=== PATIENT | female | born 1990 | race Caucasian/White ===

== ENCOUNTER 2022-05-19 08:27 | Day surgery (SDC) | payer BC ==
[2022-05-14 11:34] LABS: BHCG - Serum Negative (NEGATIVE); Pregs Control Background? CLEAR/WHITE (CLR/WHITE); Pregs Control Bar Appear? YES (CONTROL BAR)
[2022-05-14 11:45] LABS: Hemoglobin 13.5 g/dL (12.0-15.5); Mean Corpuscular HGB CONC 33.9 g/dL (32.0-36.0); Mean Corpuscular Hemoglobin 31.1 pg (27.0-33.0); Mean Corpuscular Volume 91.7 fl (81.6-98.3); Mean Platelet Volume 9.9 fl (7.4-10.4); Platelet Count 203 10x3/uL (150-450); RBC Distribution Width 12.4 % (11.5-14.5); Red Blood Cell (RBC) Count 4.34 10x6/uL (3.90-5.03); White Blood Cell (WBC) Count 4.9 10x3/uL (3.5-10.5)
[2022-05-18 13:21] VITALS: BMI 26.2
[2022-05-19] MEDS ORDERED: Famotidine/PF 20 mg/2ml Vial ONE (08:35)
[2022-05-19] MEDS ORDERED: Gabapentin 300 MG CAP ONE (08:35)
[2022-05-19] MEDS ORDERED: CeleCOXIB 100 MG CAP ONE (08:36)
[2022-05-19] MEDS ORDERED: Lidocaine 1% MPF 2 ML VIAL ONE (08:58)
[2022-05-19] MEDS ORDERED: Midazolam HCl 2 mg/2 ml Vial ONE ×2 (09:34→09:36)
[2022-05-19] MEDS ORDERED: EPINEPHrine 1 MG/ML AMP ONE (09:35)
[2022-05-19] MEDS ORDERED: Bupivacaine PF 0.5% 30 ML VIAL ONE (09:35)
[2022-05-19] MEDS ORDERED: Lidocaine 1% PF 5 ML VIAL ONE (09:36)
[2022-05-19] MEDS ORDERED: Fentanyl 100 MCG/2 ML VIAL ONE ×3 (09:36→12:11)
[2022-05-19] MEDS ORDERED: PROPOFOL 20 ML ONE ×2 (09:36→10:23)
[2022-05-19] MEDS ORDERED: Ondansetron PF 4 MG/2 ML Vial ONE (09:36)
[2022-05-19] MEDS ORDERED: Ketorolac Tromethamine 30 MG/ML VIAL ONE (09:36)
[2022-05-19] MEDS ORDERED: Dexamethasone 4 mg/ml Vial ONE (09:36)
[2022-05-19] MEDS ORDERED: Rocuronium Bromide 10 MG/ML (10ML VIAL) ONE (09:36)
[2022-05-19] MEDS ORDERED: CEFAZOLIN 2 GM VIAL ONE (09:45)
[2022-05-19] MEDS ORDERED: Meperidine HCl/PF 25 MG/ML VIAL ONE (12:13)
== END 2022-05-19 13:55 | disposition home or self-care (01) ==
LOC: CSHSDC 08:27
PROVIDERS: ATTEND Obstetrics & Gynecology
PROC: 0UT94ZZ Resection of Uterus, Percutaneous Endoscopic Approach (ICD-10-PCS; principal; 2022-05-19)
PROC: 0UT74ZZ Resection of Bilateral Fallopian Tubes, Percutaneous Endoscopic Approach (ICD-10-PCS; principal; 2022-05-19)
DX: N80.03 Adenomyosis of the uterus (principal); N80.00 Endometriosis of the uterus, unspecified; N92.0 Excessive and frequent menstruation with regular cycle; N94.6 Dysmenorrhea, unspecified; N73.6 Female pelvic peritoneal adhesions (postinfective); K21.9 Gastro-esophageal reflux disease without esophagitis; E03.9 Hypothyroidism, unspecified; Z91.040 Latex allergy status; Z87.42 Personal history of other diseases of the female genital tract; Z79.899 Other long term (current) drug therapy
CPT/HCPCS: 36415; 84703; 85027; 86850; 86900; 86901; 88307; J0171; J1100; J1885; J2175; J2250; J2405; J2704; J3010; S0020; S0028

== ENCOUNTER 2022-05-28 00:46 | Inpatient (IN) | payer BC ==
[2022-05-28] MEDS ORDERED: Zolpidem Tartrate 5 MG TAB PO PRN (00:58)
[2022-05-28] MEDS: HYDROcodone/Acetaminophen 5/325 mg Tablet PO PRN ×2 (01:23→21:56)
[2022-05-28] MEDS ORDERED: Piperacillin/Tazobactam 3.375 GM in Sodium Chloride 0.9% 100 ML IVPB SCH (01:30)
[2022-05-28 01:32] VITALS: BMI 26.2
[2022-05-28] MEDS: Simethicone Chewable 80 MG TAB PO PRN ×2 (02:40→17:06)
[2022-05-28] MEDS: Sodium Chloride 0.9% 1,000 ML IV SCH ×3 (02:40→17:20)
[2022-05-28] MEDS: Ketorolac Tromethamine 30 MG/ML VIAL IM PRN ×3 (02:51→15:40)
[2022-05-28] MEDS ORDERED: Vancomycin HCl 1 GM in Sodium Chloride 0.9% 250 ML 250 ML IVPB SCH (03:00)
[2022-05-28] MEDS ORDERED: Ibuprofen 800 MG TAB PO SCH (06:00)
[2022-05-28] MEDS ORDERED: Piperacillin/Tazobactam 2.25 GM in Sodium Chloride 0.9% 100 ML IVPB SCH (06:00)
[2022-05-28] MEDS: Piperacillin/Tazobactam 3.375 GM in Sodium Chloride 0.9% 100 ML IVPB SCH ×3 (06:46→21:00)
[2022-05-28 07:23] LABS: #Eosinphils 0.2 10x3/uL (0.0-0.5); #Monocytes 1.5 10x3/uL (0.0-1.1); #Neutrophils 9.5 10x3/uL (1.5-8.4); %Basophils 0.2 % (0.0-2.0); %Eosinophils 1.5 % (0.0-6.0); %Lymphocytes 10.8 % (18.0-47.0); %Monocytes 11.5 % (0.0-10.0); %Neutrophils 75.5 % (40.0-75.0); Hemoglobin 12.1 g/dL (12.0-15.5); Mean Corpuscular HGB CONC 33.8 g/dL (32.0-36.0); Mean Corpuscular Hemoglobin 30.6 pg (27.0-33.0); Mean Corpuscular Volume 90.4 fl (81.6-98.3); Mean Platelet Volume 9.7 fl (7.4-10.4); Platelet Count 199 10x3/uL (150-450); RBC Distribution Width 12.2 % (11.5-14.5); Red Blood Cell (RBC) Count 3.96 10x6/uL (3.90-5.03); White Blood Cell (WBC) Count 12.6 10x3/uL (3.5-10.5)
[2022-05-28] MEDS: Vancomycin HCl 1 GM in Sodium Chloride 0.9% 250 ML 250 ML IVPB SCH ×2 (09:02→17:05)
[2022-05-28] MEDS: diphenhydrAMINE 25 MG CAP PO PRN (17:06)
[2022-05-28] MEDS ORDERED: Sodium Chloride 0.9% 10 ML ONE (21:51)
[2022-05-29] MEDS: diphenhydrAMINE 25 MG CAP PO PRN ×2 (00:23→09:12)
[2022-05-29] MEDS: Vancomycin HCl 1 GM in Sodium Chloride 0.9% 250 ML 250 ML IVPB SCH ×3 (00:55→16:36)
[2022-05-29] MEDS: Sodium Chloride 0.9% 1,000 ML IV SCH ×3 (01:09→17:03)
[2022-05-29] MEDS: Piperacillin/Tazobactam 3.375 GM in Sodium Chloride 0.9% 100 ML IVPB SCH ×2 (05:17→14:08)
[2022-05-29 05:21] LABS: Hemoglobin 11.5 g/dL (12.0-15.5); Mean Corpuscular HGB CONC 33.2 g/dL (32.0-36.0); Mean Corpuscular Hemoglobin 30.5 pg (27.0-33.0); Mean Corpuscular Volume 91.8 fl (81.6-98.3); Mean Platelet Volume 9.6 fl (7.4-10.4); Platelet Count 193 10x3/uL (150-450); RBC Distribution Width 12.2 % (11.5-14.5); Red Blood Cell (RBC) Count 3.77 10x6/uL (3.90-5.03); White Blood Cell (WBC) Count 13.1 10x3/uL (3.5-10.5)
[2022-05-29] MEDS ORDERED: Milk Of Magnesia 30 ML UDCUP PO SCH (09:45)
[2022-05-29] MEDS: HYDROcodone/Acetaminophen 5/325 mg Tablet PO PRN ×3 (09:54→19:13)
[2022-05-29] MEDS ORDERED: Milk Of Magnesia 30 ML UDCUP PO PRN (16:07)
[2022-05-29] MEDS: cefTRIAXone\\ROCEPHIN 2 GM in Sodium Chloride 0.9% 100 ML IVPB SCH (16:47)
[2022-05-29] MEDS: metroNIDAZOLE 500 MG in Premix Bag 1 BAG IVPB SCH (20:38)
[2022-05-30] MEDS: Sodium Chloride 0.9% 1,000 ML IV SCH ×2 (00:41→09:48)
[2022-05-30 05:21] VITALS: TEMP 98.2
[2022-05-30 07:14] LABS: #Eosinphils 0.2 10x3/uL (0.0-0.5); #Monocytes 0.8 10x3/uL (0.0-1.1); #Neutrophils 7.3 10x3/uL (1.5-8.4); %Basophils 0.2 % (0.0-2.0); %Lymphocytes 10.7 % (18.0-47.0); %Monocytes 8.3 % (0.0-10.0); %Neutrophils 78.4 % (40.0-75.0); Hemoglobin 11.1 g/dL (12.0-15.5); Mean Corpuscular HGB CONC 33.5 g/dL (32.0-36.0); Mean Corpuscular Hemoglobin 30.7 pg (27.0-33.0); Mean Corpuscular Volume 91.4 fl (81.6-98.3); Mean Platelet Volume 9.5 fl (7.4-10.4); Platelet Count 193 10x3/uL (150-450); RBC Distribution Width 12.2 % (11.5-14.5); Red Blood Cell (RBC) Count 3.62 10x6/uL (3.90-5.03); White Blood Cell (WBC) Count 9.3 10x3/uL (3.5-10.5)
[2022-05-30 07:34] LABS: ALT (SGPT) 32 U/L (8-55); AST (SGOT) 26 U/L (5-34); Albumin 3.6 g/dL (3.5-5.0); Alkaline Phosphatase 121 U/L (40-110); Anion Gap 12 mmol/L (10-20); BUN (Urea Nitrogen) Less than 4 mg/dL (7.0-18.7); Bilirubin, Total 0.4 mg/dL (0.2-1.2); Calc. Creatinine Clearance 131 mL/min (70-130); Carbon Dioxide 26 mmol/L (22-29); Chloride 106 mmol/L (98-107); Estimated GFR 117; Globulin 2.5 g/dL (2.4-3.5); Glucose 105 mg/dL (70-105); Potassium 3.8 mmol/L (3.5-5.1); Protein, Total 6.1 g/dL (6.0-8.3); Sodium 140 mmol/L (136-145)
[2022-05-30 09:01] VITALS: BP 129/91
[2022-05-30] MEDS: metroNIDAZOLE 500 MG in Premix Bag 1 BAG IVPB SCH (09:47)
[2022-05-30] MEDS: HYDROcodone/Acetaminophen 5/325 mg Tablet PO PRN (10:04)
[2022-05-30] MEDS: cefTRIAXone\\ROCEPHIN 2 GM in Sodium Chloride 0.9% 100 ML IVPB SCH (16:08)
== END 2022-05-30 17:11 | disposition home or self-care (01) | DRG 759 ==
LOC: CSHPED 00:46
PROVIDERS: ADMIT Obstetrics & Gynecology; ATTEND Obstetrics & Gynecology
DX: N76.0 Acute vaginitis (principal); Z90.710 Acquired absence of both cervix and uterus; Z90.722 Acquired absence of ovaries, bilateral; K58.2 Mixed irritable bowel syndrome; Z79.899 Other long term (current) drug therapy; Z91.040 Latex allergy status; Z90.89 Acquired absence of other organs; Z87.442 Personal history of urinary calculi
CPT/HCPCS: 36415; 76857; 80053; 80202; 82565; 85025; 85027; 87070; 87205; J0696; J1885; J2543; J3370; J3490; J7050